=== PATIENT | male | born 1955 | race Caucasian/White ===

== ENCOUNTER → 2016-12-21 | Outpatient (CLI) | payer MEDICARE ==
[~2016-12-21] MED LIST: ACLI400A2 INH; ALBU8.5H3 INH; CYCL-259 PO; FLUT12HF3 IH; HYDR-3240 PO; METH750T87 PO; METO10TA2 PO; ONDA8TAB16 SL; PANT40TA5 PO; SPIR25TA3 PO; TADA5TAB2 PO; TORS20TA2 PO; marijuana; ventolin hfa
== END | disposition home or self-care (01) ==
LOC: CFH 15:33 → EDSTATUS 16:00
PROVIDERS: ATTEND Internal Medicine
DX: J44.9 Chronic obstructive pulmonary disease, unspecified (principal); I25.10 Atherosclerotic heart disease of native coronary artery without angina pectoris; Z85.118 Personal history of other malignant neoplasm of bronchus and lung
CPT/HCPCS: 71250

== ENCOUNTER 2019-04-04 08:45 | Outpatient (CLI) | payer MEDICARE ==
[~2019-04-04 08:45] MED LIST changes: -ACLI400A2 INH; +ACLI400A3 INH; -ALBU8.5H3 INH; +ALBU8.5H8 INH; -SPIR25TA3 PO; +SPIR25TA5 PO
[2019-04-04] MEDS ORDERED: OMNIPAQUE 350 MG/ML, 75ML BOTTLE ONE (15:56)
== END 2019-04-04 23:59 | disposition home or self-care (01) ==
LOC: CFH 08:45 → EDSTATUS 09:00 → CFH 23:59
PROVIDERS: ATTEND Internal Medicine Hematology & Oncology
DX: C92.10 Chronic myeloid leukemia, BCR/ABL-positive, not having achieved remission (principal); J43.9 Emphysema, unspecified
CPT/HCPCS: 71260; Q9967

== ENCOUNTER 2019-05-02 15:24 | Outpatient (CLI) | payer MEDICARE | END 2019-05-02 23:59 | disposition home or self-care (01) | LOC: CFH 15:24 | PROVIDERS: ATTEND Nurse Practitioner | DX: R05 Cough (principal); J44.9 Chronic obstructive pulmonary disease, unspecified; F12.10 Cannabis abuse, uncomplicated; Z87.891 Personal history of nicotine dependence; Z85.118 Personal history of other malignant neoplasm of bronchus and lung | CPT/HCPCS: 71046 ==

== ENCOUNTER → 2019-07-11 | Outpatient (CLI) | payer MEDICARE | END | disposition home or self-care (01) | LOC: CFH 16:33 | PROVIDERS: ATTEND Internal Medicine | DX: J43.9 Emphysema, unspecified (principal) | CPT/HCPCS: 71046 ==

== ENCOUNTER 2019-08-19 20:36 | Emergency (ER) | payer MEDICARE ==
[~2019-08-19] VITALS: Ht 198.1 cm; Wt 77.9 kg
[2019-08-19 20:43] VITALS: BP 132/100
[2019-08-19] MEDS ORDERED: ALBUTEROL/IPRATROPIUM 2.5MG/0.5MG, 3 ML NPPB ONE (21:00)
[2019-08-19] MEDS ORDERED: ONDANSETRON 2MG/ML, 2ML IVPush ONE (21:00)
[2019-08-19] MEDS ORDERED: MORPHINE SULFATE 4 MG/ML, 1ML IVPush PRN (21:00)
[2019-08-19] MEDS ORDERED: FAMOTIDINE 20 MG/2 ML IVPush ONE (21:00)
[2019-08-19] MEDS ORDERED: SODIUM CHLORIDE 0.9% 1,000ML IVBOLUS ONE ×3 (21:00→22:30)
[2019-08-19] MEDS ORDERED: SODIUM CHLORIDE FLUSH 10ML SYR IVF ONE (21:00)
[2019-08-19 21:11] LABS: BASOPHILS # (AUTO) 0.02 x10^3/uL (0-0.1); BASOPHILS % (AUTO) 0 % (0-1); EOSINOPHILS # (AUTO) 0.02 x10^3/uL (0-0.4); EOSINOPHILS % (AUTO) 0 % (1-7); LYMPHOCYTES # (AUTO) 1.52 x10^3/uL (1-3.4); LYMPHOCYTES % (AUTO) 16 % (22-44); MD NO; MEAN CORPUSCULAR HEMOGLOBIN 32.5 pg (27.5-34.5); MEAN CORPUSCULAR HGB CONC 34.3 g/dL (33.2-36.2); MEAN CORPUSCULAR VOLUME 94.7 fL (81-97); MEAN PLATELET VOLUME 7.1 fL (7.4-10.4); MONOCYTES # (AUTO) 0.43 x10^3/uL (0.2-0.8); MONOCYTES % (AUTO) 5 % (2-9); NEUTROPHILS # (AUTO) 7.52 x10^3/uL (1.8-6.8); NEUTROPHILS % (AUTO) 79 % (42-75); PLATELET COUNT 200 x10^3/uL (130-400); RED BLOOD COUNT 4.69 x10^6/uL (4.38-5.82); RED CELL DISTRIBUTION WIDTH 13.2 % (9.4-14.8)
[2019-08-19] MEDS ORDERED: MORPHINE SULFATE 4 MG/ML, 1ML ONE (21:21)
[2019-08-19] MEDS ORDERED: FAMOTIDINE 20 MG/2 ML ONE (21:21)
[2019-08-19] MEDS ORDERED: ONDANSETRON 2MG/ML, 2ML ONE (21:21)
[2019-08-19 21:23] LABS: ALANINE AMINOTRANSFERASE 52 U/L (12-78); ALBUMIN 3.7 g/dL (3.4-5.0); ANION GAP 10 mmol/L (5-15); CALCIUM 9.3 mg/dL (8.5-10.1); CHLORIDE 107 mmol/L (98-107); CREATININE 0.88 mg/dL (0.7-1.3)
[2019-08-19 21:25] LABS: ALKALINE PHOSPHATASE 97 U/L (45-117); BILIRUBIN,TOTAL 0.6 mg/dL (0.2-1.0)
[2019-08-19] MEDS ORDERED: ALBUTEROL/IPRATROPIUM 2.5MG/0.5MG, 3 ML ONE (21:27)
--- NOTE | 2019-08-19 21:34 | NUR ---
PT HERE FOR NEW ONSET OF ABD PAIN. PT REPORTS THAT HE JUST FINISHED HIS CHEMO 2 WEEKS AGO. PT REPROTS THAT THIS MORNING HE WAS FINE UNTIL HE DEVELOPED JAGDISH UMGBILICUS PAIN THAT WOULD NOT RESLOVE. PT DENIES TRAUAM. PT THEN REPROTS THAT HE HAS HAD DRY HEAVING ALL DAY AND HAS MULTIPLE EPISODES OF EMESIS. PIV PLACED AND PATIENT MEDICATED. AWAITING FOR FURTHER ORDERS. CALL LIGHT IN REACH.
--- NOTE | 2019-08-19 23:03 | NUR ---
Patient/Caregiver given discharge instructions and they have confirmed that they understand the instructions. Patient ambulatory with steady gait.
== END 2019-08-19 23:04 | disposition home or self-care (01) ==
LOC: ED 21:38
DX: J44.0 Chronic obstructive pulmonary disease with (acute) lower respiratory infection (principal); R11.2 Nausea with vomiting, unspecified; R10.30 Lower abdominal pain, unspecified; Z87.891 Personal history of nicotine dependence
CPT/HCPCS: 36415; 74022; 80053; 83690; 85025; 96361; 96374; 96375; 99284; J2270; J2405; J3490; J7030

== ENCOUNTER → 2020-02-06 | Outpatient (CLI) | payer MEDICARE | END | disposition home or self-care (01) | LOC: CFH 08:57 | PROVIDERS: ATTEND Physician Assistant | DX: B18.2 Chronic viral hepatitis C (principal) | CPT/HCPCS: 76705 ==

== ENCOUNTER 2020-09-19 08:32 | Outpatient (CLI) | payer MEDICARE ==
[~2020-09-19 08:32] MED LIST changes: -CYCL-259 PO; +CYCL10TA2 PO; +HYDR-2214 PO; -HYDR-3240 PO; -PANT40TA5 PO; +PANT40TA6 PO
== END 2020-09-19 23:59 | disposition home or self-care (01) ==
LOC: CFH 08:32
PROVIDERS: ATTEND Internal Medicine Hematology & Oncology
DX: C92.10 Chronic myeloid leukemia, BCR/ABL-positive, not having achieved remission (principal); J43.9 Emphysema, unspecified; R91.1 Solitary pulmonary nodule; R06.02 Shortness of breath; I25.10 Atherosclerotic heart disease of native coronary artery without angina pectoris; M51.46 Schmorl's nodes, lumbar region; I70.0 Atherosclerosis of aorta; M51.36 Other intervertebral disc degeneration, lumbar region; N28.1 Cyst of kidney, acquired; N62 Hypertrophy of breast
CPT/HCPCS: 71250

== ENCOUNTER → 2020-11-04 | Outpatient (CLI) | payer MEDICARE | END | disposition home or self-care (01) | LOC: CFH 09:05 | PROVIDERS: ATTEND Physician Assistant | DX: K74.60 Unspecified cirrhosis of liver (principal); B18.2 Chronic viral hepatitis C; R16.1 Splenomegaly, not elsewhere classified | CPT/HCPCS: 76705 ==